=== PATIENT | male | born 1995 | race Hispanic/Latino ===

== ENCOUNTER → 2016-11-13 | Outpatient (CLI) | payer OTHER ==
[~2016-11-13] MED LIST: ISOVUE-370 76% 100ML VIAL (Q9967) As Ordered ONE
--- NOTE | 2016-11-14 03:58 | REP ---
Clinical: Urachal malformation. Technique: Axial precontrast, contrast enhanced, and delayed images of the abdomen and pelvis using 100 ml Isovue 370 intravenous contrast material with coronal and sagittal re-formations. Comparison: 01/05/2016. Findings: Evaluation of the urinary check system demonstrates normal bilateral kidneys and ureters. The bladder is essentially normal/stable and a very small urachal remnant along the anterior-superior margin of the bladder is again identified and unchanged. No associated stranding or mass lesion is appreciated related to the urachal remnant. Liver, spleen, pancreas, gallbladder, and bilateral adrenal glands are normal. Enteric system is without obstruction or acute inflammatory process. Scattered sigmoid diverticula noted without acute diverticulitis. Normal terminal ileum and appendix identified in the right lower quadrant. Pelvis demonstrates bladder as described above and normal prostate/seminal vesicles. No ascites. No adenopathy. No free air. No mass lesion. Vasculature is normal. Musculoskeletal structures are intact. Lung bases are clear. Impression: 1. 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 2. Few scattered sigmoid diverticula. 3. No acute abdominopelvic pathology otherwise appreciated. Signed by Rajeev Pérez MD 11/14/2016 03:48 A
== END ==
LOC: M RAD 10:43
PROVIDERS: ATTEND Nurse Practitioner Women's Health
DX: Q64.4 Malformation of urachus (principal); K57.92 Diverticulitis of intestine, part unspecified, without perforation or abscess without bleeding
CPT/HCPCS: 74178; Q9967